=== PATIENT | female | born 1995 | race Caucasian/White ===

== ENCOUNTER 2021-12-30 11:12 | Emergency (ER) | payer OTHER ==
[~2021-12-30] VITALS: Ht 160 cm; Wt 75.8 kg
--- NOTE | 2021-12-30 11:35 | NUR ---
CRISTIAN from work, stated she has head ache and ab pain , felt numb on extremities
[2021-12-30] MEDS ORDERED: METOCLOPRAMIDE HCL 10 MG/2 ML VIAL ONE (11:48)
--- NOTE | 2021-12-30 11:50 | NUR ---
IV RAC 1st attempt, patent, flushing well. intact
[2021-12-30 11:53] LABS: BILIRUBIN,URINE NEGATIVE (NEGATIVE); COLOR,URINE RED (YELLOW); LEUKOCYTE ESTERASE ,URINE TRACE (NEGATIVE); NITRITE, URINE NEGATIVE (NEGATIVE); PH,URINE 7.5 (5.0-8.0); PROTEIN,URINE 30 mg/dl (NEGATIVE); UGLUCOSE NEGATIVE (NEGATIVE); UROBILINOGEN,URINE 0.2 EU/dL (0.2)
[2021-12-30] MEDS ORDERED: METOCLOPRAMIDE HCL 10 MG/2 ML VIAL IV ONE (12:00)
[2021-12-30] MEDS ORDERED: IV NS 0.9% 1,000 ML IV ONE (12:00)
[2021-12-30 12:06] LABS: BACTERIA,URINE None seen /HPF (None Seen); RBC,URINE TOO NUMEROUS TO COUN /HPF (0-2); SQUAMOUS EPITHELIAL CELL,UR Rare /HPF (None Seen); WBC,URINE 0-2 /HPF (0-3)
[2021-12-30 13:49] VITALS: BP 132/51
== END 2021-12-30 13:49 | disposition home or self-care (01) ==
LOC: ER 11:33
DX: R51.9 Headache, unspecified (principal); R20.2 Paresthesia of skin
CPT/HCPCS: 99283; 96374; 96361; 84703; 81001; J2765; J7030